=== PATIENT | female | born 1980 | race Caucasian/White ===

== ENCOUNTER 2019-01-18 06:00 | Inpatient (IN) | payer BC ==
[~2019-01-18] VITALS: Ht 170.2 cm; Wt 105.7 kg
[2019-01-18] MEDS ORDERED: LR 1,000 ML IV SCH ×3 (06:10→09:13)
[2019-01-18] MEDS ORDERED: CEFAZOLIN 2 GM IVPB PREMIX 50 ML IV ONE (06:15)
[2019-01-18 06:32] VITALS: BP_SYST 123
[2019-01-18] MEDS ORDERED: CALCIUM GLUCONATE 1 GM/10 ML VIAL IV ONE (07:10)
[2019-01-18] MEDS ORDERED: WATER FOR IRRIGATION,STERILE 1,000 ML IRRIG.SOLN IR ONE (07:10)
[2019-01-18] MEDS ORDERED: ePHEDrine sulfate 50 MG/ML VIAL IVP ONE (07:10)
[2019-01-18] MEDS ORDERED: BUPIVACAINE /DEX PF 0.75% SPINAL 2 ML AMP INJ ONE (07:10)
[2019-01-18] MEDS ORDERED: LR 1,000 ML IV.SOLN IV ONE (07:10)
[2019-01-18] MEDS ORDERED: LIDOCAINE 1% 10 MG/ML, 20 ML MDV INJ ONE (07:10)
[2019-01-18] MEDS ORDERED: OXYTOCIN/0.9 % SODIUM CHLORIDE 20 UNITS/1,000 ML BAG IV ONE (07:10)
[2019-01-18] MEDS ORDERED: MORPHINE SULFATE 10MG/10ML PF AMP EP ONE (07:10)
[2019-01-18] MEDS ORDERED: ONDANSETRON HCL 4 MG/2 ML VIAL IVP ONE (07:10)
[2019-01-18] MEDS ORDERED: KETOROLAC TROMETHAMINE 30 MG VIAL IVP ONE (07:10)
[2019-01-18 07:24] LABS: HEMATOCRIT 32.4 % (36-48); HEMOGLOBIN 10.8 g/dL (12.0-16.0); LYMPHOCYTES % (AUTO) 18.8 % (20.5-51.5); MEAN CORPUSCULAR HEMOGLOBIN 29 pg (27-31); MEAN CORPUSCULAR HGB CONC 33 % (32-36); MEAN CORPUSCULAR VOLUME 87 fL (79.0-98.0); MONOCYTES % (AUTO) 6.9 % (1.7-9.3); NEUTROPHILS % (AUTO) 73.7 % (40.0-70.0); PLATELET COUNT (AUTO) 229 K/uL (130-430); RED BLOOD CELL COUNT(AUTO) 3.75 MIL/uL (4.2-6.2); RED CELL DISTRIBUTION WIDTH 14.1 % (9.0-15.0); WHITE BLOOD COUNT (AUTO) 11.7 K/uL (4.8-10.8)
[2019-01-18 07:25] LABS: BASOPHILS # (AUTO) 0.1 K/uL (0.0-0.2); BASOPHILS % (AUTO) 0.4 % (0.0-2.0); EOSINOPHILS % (AUTO) 0.2 % (0.0-4.0); LYMPHOCYTES # (AUTO) 2.2 K/uL (1.0-5.5); MONOCYTES # (AUTO) 0.8 K/uL (0.0-1.0); NEUTROPHILS # (AUTO) 8.6 K/uL (1.8-7.7)
[2019-01-18] MEDS ORDERED: MEPERIDINE HCL/PF 25 MG/ML DISP.SYRIN IVP PRN ×2 (07:45)
[2019-01-18] MEDS ORDERED: NALOXONE HCL 1 MG in NACL 0.9% 1,000 ML IV PRN ×4 (07:45)
[2019-01-18] MEDS ORDERED: DIPHENHYDRAMINE INJ 50 MG/ML VIAL IVP PRN (07:45)
[2019-01-18] MEDS ORDERED: KETOROLAC TROMETHAMINE 60 MG/2 ML VIAL IM PRN (07:45)
[2019-01-18] MEDS ORDERED: HYDROmorphone 2 MG/ML VIAL IVP PRN ×2 (07:45)
[2019-01-18] MEDS ORDERED: HYDROmorphone 1 MG INJ. 1 MG/ML AMPUL IVP PRN (07:45)
[2019-01-18] MEDS ORDERED: NALOXONE HCL 0.4 MG/ML AMP (NARCAN) IVP PRN ×3 (07:45)
[2019-01-18] MEDS ORDERED: DIPHENHYDRAMINE HCL 50 MG CAPSULE PO PRN (07:45)
[2019-01-18 09:10] VITALS: BP_SYST 124
[2019-01-18] MEDS ORDERED: OXYTOCIN/0.9 % SODIUM CHLORIDE 1,000 ML IV ONE (09:13)
[2019-01-18] MEDS ORDERED: MEASLES,MUMPS&RUBELLA VACC/PF 12500 UNIT/0.5 ML VIAL SUBQ PRN (09:15)
[2019-01-18] MEDS ORDERED: OXYCODONE/ACETAMINOPHEN 5-325 TABLET PO PRN ×2 (09:15)
[2019-01-18] MEDS ORDERED: DIPH-TET-PERTUS Vaccine 0.5 ML VIAL (ADACEL) I.M. PRN (09:15)
[2019-01-18] MEDS ORDERED: RHO(D) IMMUNE GLOBULIN/MALTOSE 1500 UNITS/1.3 ML (WINHRO) IM PRN (09:15)
[2019-01-18] MEDS ORDERED: ANUSOL 1 EA SUPP.RECT (PREPARATION H) RC PRN (09:15)
[2019-01-18] MEDS ORDERED: BISACODYL 10 MG/SUPPOSITORY RC PRN (09:15)
[2019-01-18] MEDS ORDERED: LANOLIN 7 GM OINT. TP PRN (09:15)
[2019-01-18] MEDS ORDERED: DOCUSATE SODIUM 100 MG CAPSULE PO PRN (09:15)
[2019-01-18] MEDS ORDERED: HYDROcodone/ACETAMIN 5-325 MG TAB (NORCO/ VICODIN) PO PRN (09:15)
[2019-01-18] MEDS: ONDANSETRON HCL 4 MG/2 ML VIAL IVP PRN ×2 (10:04→18:38)
[2019-01-18] MEDS: CEFAZOLIN 1 GM IVPB PREMIX 50 ML IV SCH ×2 (15:00→20:42)
[2019-01-18] MEDS: KETOROLAC TROMETHAMINE 30 MG VIAL IVP SCH ×2 (17:49→23:41)
[2019-01-18] MEDS: SIMETHICONE 80 MG TAB.CHEW PO PRN (17:50)
[2019-01-18] MEDS: SENNOSIDES/DOCUSATE SODIUM 1 TAB TABLET(SENOKOT-S) PO PRN (17:52)
[2019-01-18] MEDS ORDERED: TEMAZEPAM 15 MG CAPSULE PO PRN (21:00)
[2019-01-19] MEDS: CEFAZOLIN 1 GM IVPB PREMIX 50 ML IV SCH (03:21)
[2019-01-19] MEDS: SIMETHICONE 80 MG TAB.CHEW PO PRN ×2 (05:50→09:44)
[2019-01-19 07:26] LABS: HEMATOCRIT 24.4 % (36-48); HEMOGLOBIN 8.2 g/dL (12.0-16.0); MEAN CORPUSCULAR HEMOGLOBIN 29 pg (27-31); MEAN CORPUSCULAR HGB CONC 33 % (32-36); MEAN CORPUSCULAR VOLUME 88 fL (79.0-98.0); RED BLOOD CELL COUNT(AUTO) 2.79 MIL/uL (4.2-6.2); WHITE BLOOD COUNT (AUTO) 14.1 K/uL (4.8-10.8)
[2019-01-19 07:27] LABS: BASOPHILS % (AUTO) 0.2 % (0.0-2.0); EOSINOPHILS % (AUTO) 0.2 % (0.0-4.0); LYMPHOCYTES % (AUTO) 14.4 % (20.5-51.5); MONOCYTES # (AUTO) 1.1 K/uL (0.0-1.0); MONOCYTES % (AUTO) 7.7 % (1.7-9.3); NEUTROPHILS # (AUTO) 10.9 K/uL (1.8-7.7); NEUTROPHILS % (AUTO) 77.5 % (40.0-70.0); PLATELET COUNT (AUTO) 203 K/uL (130-430); RED CELL DISTRIBUTION WIDTH 13.6 % (9.0-15.0)
[2019-01-19] MEDS: SENNOSIDES/DOCUSATE SODIUM 1 TAB TABLET(SENOKOT-S) PO PRN (09:45)
[2019-01-19] MEDS: IBUPROFEN 600 MG TABLET PO SCH ×2 (09:46→18:41)
[2019-01-20] MEDS: IBUPROFEN 600 MG TABLET PO SCH ×3 (00:09→12:21)
[2019-01-20] MEDS ORDERED: ONDANSETRON HCL 4 MG/2 ML VIAL IVP ONE (07:10)
[2019-01-20] MEDS ORDERED: OXYTOCIN/0.9 % SODIUM CHLORIDE 20 UNITS/1,000 ML BAG IV ONE (07:10)
[2019-01-20] MEDS ORDERED: MORPHINE SULFATE 10MG/10ML PF AMP EP ONE (07:10)
[2019-01-20] MEDS ORDERED: ePHEDrine sulfate 50 MG/ML VIAL IVP ONE (07:10)
[2019-01-20] MEDS ORDERED: LIDOCAINE 1% 10 MG/ML, 20 ML MDV INJ ONE (07:10)
[2019-01-20] MEDS ORDERED: LR 1,000 ML IV.SOLN IV ONE (07:10)
[2019-01-20] MEDS ORDERED: KETOROLAC TROMETHAMINE 30 MG VIAL IVP ONE (07:10)
[2019-01-20] MEDS ORDERED: WATER FOR IRRIGATION,STERILE 1,000 ML IRRIG.SOLN IR ONE (07:10)
[2019-01-20] MEDS ORDERED: BUPIVACAINE /DEX PF 0.75% SPINAL 2 ML AMP INJ ONE (07:10)
== END 2019-01-20 13:45 | disposition home or self-care (01) | DRG 788 ==
LOC: SPU 06:00
PROVIDERS: ADMIT Specialist; ATTEND Specialist
PROC: 3E0R3BZ Introduction of Anesthetic Agent into Spinal Canal, Percutaneous Approach (ICD-10-PCS; 2019-01-18)
PROC: 00HU33Z Insertion of Infusion Device into Spinal Canal, Percutaneous Approach (ICD-10-PCS; 2019-01-18)
PROC: 10D00Z1 Extraction of Products of Conception, Low, Open Approach (ICD-10-PCS; principal; 2019-01-18 07:30)
DX: O36.63X0 Maternal care for excessive fetal growth, third trimester, not applicable or unspecified (principal); O34.13 Maternal care for benign tumor of corpus uteri, third trimester; D25.9 Leiomyoma of uterus, unspecified; Z3A.39 39 weeks gestation of pregnancy; Z37.0 Single live birth
CPT/HCPCS: 36415; 82310-TC; 85025; 86592; 86886; 86900; 86901; 90715; 94760; A4618; J0610; J0690; J1885; J2001; J2274; J2310; J2405; J2590; J3490; J7030; J7120

== ENCOUNTER 2019-10-23 10:39 | Inpatient (IN) | payer BC ==
[~2019-10-23] VITALS: Ht 170.2 cm; Wt 90.7 kg
[2019-10-23] MEDS ORDERED: CEFAZOLIN 2 GM IVPB PREMIX 50 ML IV ONE (11:00)
[2019-10-23] MEDS ORDERED: LEVO150T PO (11:56)
[2019-10-23] MEDS ORDERED: CALC200T47 PO (11:56)
[2019-10-23] MEDS ORDERED: TEMA15CA5 PO (11:57)
[2019-10-23] MEDS ORDERED: DOCU-144 PO (11:57)
[2019-10-23] MEDS ORDERED: MEPERIDINE HCL/PF 100 MG/ML AMP IM ONE (16:45)
[2019-10-23] MEDS ORDERED: MEPERIDINE HCL/PF 100 MG/ML AMP ONE (16:55)
[2019-10-23] MEDS ORDERED: POLYMYXIN 500,000/BACIT.10,000 UNITS in NS IRR 1 L IR ONE (18:07)
[2019-10-23] MEDS ORDERED: PHENYLEPHRINE HCL 10 MG/ML VIAL (NEOSYNEPHRINE) IV ONE (18:10)
[2019-10-23] MEDS ORDERED: SEVOFLURANE 15 MIN GAS INH ONE (18:10)
[2019-10-23] MEDS ORDERED: LIDOCAINE 2% JELLY UROJECT 10 ML MM ONE (18:10)
[2019-10-23] MEDS ORDERED: BUPIVACAINE /EPINEPHRINE/PF 0.5% 30 ML VIAL INJ ONE (18:10)
[2019-10-23] MEDS ORDERED: WATER FOR IRRIGATION,STERILE 1,000 ML IRRIG.SOLN IR ONE (18:10)
[2019-10-23] MEDS ORDERED: FUROSEMIDE 20 MG/2 ML VIAL IVP ONE (18:10)
[2019-10-23] MEDS ORDERED: NS IRRIG SOLN 1000 ML IR ONE (18:10)
[2019-10-23] MEDS ORDERED: GLYCOPYRROLATE 0.2 MG/ML VIAL IJ ONE (18:10)
[2019-10-23] MEDS ORDERED: ROPIVACAINE HCL/PF 0.2% EPIDURAL 200 ML PLAST..BAG EP ONE (18:10)
[2019-10-23] MEDS ORDERED: BUPIVACAINE /PF 0.5% 30 ML VIAL INJ ONE (18:10)
[2019-10-23] MEDS ORDERED: ONDANSETRON HCL 4 MG/2 ML VIAL IVP ONE (18:10)
[2019-10-23] MEDS ORDERED: CLINDAMYCIN 2% VAGINAL CREAM VG ONE (18:10)
[2019-10-23] MEDS ORDERED: MIDAZOLAM HCL 5 MG/5 ML VIAL IVP ONE (18:10)
[2019-10-23] MEDS ORDERED: DEXTROSE 50% JECT 50 ML DISP.SYRIN IVP ONE (18:10)
[2019-10-23] MEDS ORDERED: fentaNYL CITRATE 250 MCG/5 ML AMP IV ONE (18:10)
[2019-10-23] MEDS ORDERED: PROPOFOL 200MG/ 20ML VIAL (DIPRIVAN) IV ONE (18:10)
[2019-10-23] MEDS ORDERED: LR 1,000 ML IV SCH (19:20)
[2019-10-23] MEDS ORDERED: HYDROmorphone 1 MG INJ. 1 MG/ML AMPUL IVP PRN ×2 (19:30)
[2019-10-23] MEDS ORDERED: METOCLOPRAMIDE HCL 10 MG/2 ML VIAL IVP PRN (19:30)
[2019-10-23] MEDS ORDERED: HYDROmorphone 2 MG/ML VIAL IVP PRN ×2 (19:30→22:15)
[2019-10-23] MEDS ORDERED: HYDROcodone/ACETAMIN 5-325 MG TAB (NORCO/ VICODIN) PO PRN (22:15)
[2019-10-23] MEDS ORDERED: ONDANSETRON HCL 4 MG/2 ML VIAL IVP PRN (22:15)
[2019-10-23] MEDS ORDERED: OXYCODONE/ACETAMINOPHEN 5-325 TABLET PO PRN ×2 (22:15)
[2019-10-23] MEDS ORDERED: HYDROmorphone 1 MG INJ. 1 MG/ML AMPUL ONE (22:24)
[2019-10-23 23:35] VITALS: BP_SYST 107
[2019-10-24 01:49] VITALS: BP_SYST 107
[2019-10-24 08:00] VITALS: BP_SYST 105
[2019-10-24] MEDS: SIMETHICONE 80 MG TAB.CHEW PO SCH ×2 (09:02→13:00)
[2019-10-24 12:30] VITALS: BP_SYST 109
[2019-10-24 14:27] VITALS: BP_SYST 116
[2019-10-24 16:49] VITALS: BP_SYST 112
== END 2019-10-24 14:55 | disposition home or self-care (01) | DRG 742 ==
LOC: SMU 10:39 → EDSTATUS 12:15 → SMU 23:02
PROVIDERS: ADMIT Specialist; ATTEND Specialist
PROC: 0UT7FZZ Resection of Bilateral Fallopian Tubes, Via Natural or Artificial Opening With Percutaneous Endoscopic Assistance (ICD-10-PCS; 2019-10-23)
PROC: 0TSD4ZZ Reposition Urethra, Percutaneous Endoscopic Approach (ICD-10-PCS; 2019-10-23)
PROC: 0USG4ZZ Reposition Vagina, Percutaneous Endoscopic Approach (ICD-10-PCS; 2019-10-23)
PROC: 0JQC0ZZ Repair Pelvic Region Subcutaneous Tissue and Fascia, Open Approach (ICD-10-PCS; 2019-10-23)
PROC: 0JH80WZ Insertion of Totally Implantable Vascular Access Device into Abdomen Subcutaneous Tissue and Fascia, Open Approach (ICD-10-PCS; 2019-10-23)
PROC: 8E0W4CZ Robotic Assisted Procedure of Trunk Region, Percutaneous Endoscopic Approach (ICD-10-PCS; 2019-10-23)
PROC: 0UT9FZZ Resection of Uterus, Via Natural or Artificial Opening With Percutaneous Endoscopic Assistance (ICD-10-PCS; principal; 2019-10-23 12:15)
DX: D25.9 Leiomyoma of uterus, unspecified (principal); B81.4 Mixed intestinal helminthiases; N81.6 Rectocele; N81.4 Uterovaginal prolapse, unspecified; N39.3 Stress incontinence (female) (male); E83.51 Hypocalcemia; E03.9 Hypothyroidism, unspecified; N93.9 Abnormal uterine and vaginal bleeding, unspecified; E66.3 Overweight; N92.6 Irregular menstruation, unspecified; Z79.899 Other long term (current) drug therapy; Z88.8 Allergy status to other drugs, medicaments and biological substances; Z68.31 Body mass index [BMI] 31.0-31.9, adult
CPT/HCPCS: 87081; 88302; 88305; 88307; C1727; C1771; E0190; J0690; J1170; J1940; J2175; J2250; J2370; J2405; J2704; J3010; J3490; J7120